=== PATIENT | female | born 1950 | race Caucasian/White ===

== ENCOUNTER 2022-04-04 11:35 | Outpatient (CLI) | payer OTHER, SELFPAY ==
[2022-04-04 21:47] LABS: Chloride* 105 mmol/L (96-114)
[2022-04-04 21:48] LABS: Albumin* 4.4 g/dL (3.3-5.0); Potassium* 4.4 mmol/L (3.6-5.1); Sodium* 140 mmol/L (135-149)
[2022-04-04 21:50] LABS: Aspartate Amino Transferase* 22 U/L (12-35); Bilirubin Total* 0.7 mg/dL (0.1-1.5); Carbon Dioxide* 26 mmol/L (20-32); Creatinine* 0.8 mg/dL (0.5-1.5); Estimated Glomerular Filt Rate 78 ml/min
[2022-04-04 21:51] LABS: Alanine Aminotransferase* 16 U/L (4-35); Alkaline Phosphatase* 114 U/L (40-150); Blood Urea Nitrogen* 16 mg/dL (7-30); Calcium* 9.6 mg/dL (8.4-10.6); Glucose* 94 mg/dL (60-115)
[2022-04-04 22:21] LABS: TSH With Reflex to FT4* 0.296 uIU/mL (0.270-4.200)
== END 2022-04-04 11:36 | disposition home or self-care (01) ==
PROVIDERS: PCP Physician Assistant Medical; Visit Provider Family Medicine
DX: I10 Essential (primary) hypertension (principal); R41.82 Altered mental status, unspecified; R53.83 Other fatigue; R39.9 Unspecified symptoms and signs involving the genitourinary system
CPT/HCPCS: 80053; 84443

== ENCOUNTER 2022-04-12 12:39 | Outpatient (CLI) | payer OTHER, SELFPAY ==
--- NOTE | 2022-04-12 13:00 | CRLHL7_ITS ---
For Patients: As a result of the Century Cures Act, medical imaging exams and procedure reports are released immediately into your electronic medical record. You may view this report before your referring provider. If you have questions, please contact your health care provider. INDICATION: ALTERED MENTAL STATUS COMPARISON: none TECHNIQUE: A CT volumetric acquisition was performed of the brain without IV contrast. Please note that all CT scans at this facility use dose modulation, iterative reconstruction, and/or weight-based dosing when appropriate to reduce radiation dose to as low as reasonably achievable. FINDINGS: The CT images reveal a normal appearance of the cerebral ventricles and basal cisterns. There is no evidence of intracranial hemorrhage, tissue infarction or mass effect. Mild chronic white matter changes are present. The calvarium appears intact. There is normal aeration of the visualized paranasal sinuses. IMPRESSION: Mild chronic white matter changes, likely representing sequela of small-vessel ischemic disease. No hydrocephalus. Please note that all CT scans at this facility use dose modulation, iterative reconstruction, and/or weight-based dosing when appropriate to reduce radiation dose to as low as reasonably achievable. Dictated by Torin Ray MD @ 04/12/2022 1:23:52 PM (Electronically Signed)
== END 2022-04-12 12:40 | disposition home or self-care (01) ==
LOC: CT 12:41
PROVIDERS: PCP Physician Assistant Medical; Visit Provider Family Medicine
DX: R41.82 Altered mental status, unspecified (principal); G93.9 Disorder of brain, unspecified
CPT/HCPCS: 70450

== ENCOUNTER 2023-04-04 10:07 | Outpatient (CLI) | payer OTHER, SELFPAY | END 2023-04-04 10:08 | disposition home or self-care (01) | PROVIDERS: PCP Physician Assistant Medical; Visit Provider Family Medicine | DX: Z00.00 Encounter for general adult medical examination without abnormal findings (principal); E78.5 Hyperlipidemia, unspecified; I10 Essential (primary) hypertension; R79.89 Other specified abnormal findings of blood chemistry; Z11.59 Encounter for screening for other viral diseases; Z13.29 Encounter for screening for other suspected endocrine disorder | CPT/HCPCS: 80053; 80061; 82043; 82570; 84443; 86803 ==

== ENCOUNTER 2023-04-25 07:49 | Outpatient (CLI) | payer MEDICARE, SELFPAY ==
--- NOTE | 2023-04-25 08:15 | CRLHL7_ITS ---
For Patients: As a result of the Century Cures Act, medical imaging exams and procedure reports are released immediately into your electronic medical record. You may view this report before your referring provider. If you have questions, please contact your health care provider. Examination: US abdominal aorta Indication: Abdominal aortic aneurysm screening. Technique: Luz scale and color Doppler images of the aorta and common iliac arteries are obtained. Comparison: None Findings: Proximal aorta: 2.3 x 2.3 cm Mid aorta: 1.8 x 1.8 cm Distal aorta: 2.3 x 2.7 cm Right common iliac artery: 0.9 x 0.9 cm Left common iliac artery: 1.1 x 1.1 cm Recommended imaging interval for ectatic aorta: 2.5-2.9 cm: 5 years Impression: Ectatic distal abdominal aorta measuring up to 2.7 cm. Dictated by Torin Ray MD @ 04/25/2023 9:04:47 AM (Electronically Signed)
== END 2023-04-25 07:50 | disposition home or self-care (01) ==
PROVIDERS: PCP Family Medicine; Visit Provider Family Medicine
DX: Z13.6 Encounter for screening for cardiovascular disorders (principal); Z72.0 Tobacco use
CPT/HCPCS: 76706

== ENCOUNTER 2023-07-24 14:20 | Outpatient (CLI) | payer MEDICARE, SELFPAY | END 2023-07-24 14:21 | disposition home or self-care (01) | PROVIDERS: PCP Family Medicine; Visit Provider Family Medicine | DX: R42 Dizziness and giddiness (principal) | CPT/HCPCS: 82306; 84439; 84443 ==

== ENCOUNTER 2023-07-25 10:26 | Outpatient (CLI) | payer MEDICARE, SELFPAY | END 2023-07-25 10:27 | disposition home or self-care (01) | LOC: NFLDREF 07-26 10:07 | PROVIDERS: PCP Family Medicine; Referring Provider Family Medicine; Visit Provider Family Medicine | DX: R42 Dizziness and giddiness (principal) | CPT/HCPCS: 87086 ==

== ENCOUNTER 2023-07-31 07:02 | Outpatient (CLI) | payer MEDICARE, SELFPAY ==
--- NOTE | 2023-07-31 07:15 | MR_ITS ---
Patient: URIEL SUNSHINE Facility:?[facility] Patient ID:?[id number] Site Patient ID:?[id number]. Site :?[id number] Study:?MRI-Head w/o-07/31/2023 7:43:15 AM Ordering Physician:Ector Heart Final Report: INDICATION: Dizziness. Dementia. Comparison 04/12/2022. Technique: Multiplanar T1, T2, FLAIR and diffusion-weighted imaging. FINDINGS: Mild generalized volume loss. Scattered patchy T2/FLAIR signal hyperintensity within the white matter of both cerebral hemispheres most consistent with chronic deep white matter small vessel ischemic changes. No intracranial hemorrhage. No abnormal ventricular dilatation. Intracranial vascular flow voids are preserved. No mass effect or midline shift. No restricted diffusion to suggest acute ischemia. No susceptibility artifact of remote hemorrhage. Bilateral orbits are unremarkable. Normal appearing sella. Visualized paranasal sinuses and mastoid air cells are unremarkable. IMPRESSION: 1. No acute intracranial abnormality. 2. Mild generalized cerebral volume loss. Scattered patchy T2/FLAIR signal hyperintensity within the white matter of both cerebral hemispheres consistent with chronic deep white matter small vessel ischemic changes. 3. No acute or chronic intracranial hemorrhage Dictated by Jose Sandoval MD @ 07/31/2023 12:38:15 PM Signed by:?Jose Sandoval MD @07/31/2023 12:38:15 PM (Electronic Signature)
== END 2023-07-31 07:03 | disposition home or self-care (01) ==
PROVIDERS: PCP Family Medicine; Visit Provider Family Medicine
DX: F02.80 Dementia in other diseases classified elsewhere, unspecified severity, without behavioral disturbance, psychotic disturbance, mood disturbance, and anxiety (principal); G31.83 Neurocognitive disorder with Lewy bodies; R42 Dizziness and giddiness
CPT/HCPCS: 70551